=== PATIENT | female | born 1990 | race Caucasian/White ===

== ENCOUNTER 2016-08-31 13:00 | Emergency (ER) | payer OTHER ==
[2016-08-31] MEDS ORDERED: Ketorolac INJ* 30 MG/ML 1 ML VIAL IV ONE (13:23)
[2016-08-31] MEDS ORDERED: Metoclopramide IV* 5 MG/ML 2 ML VIAL IV ONE (13:23)
[2016-08-31] MEDS ORDERED: diPHENhydraMINE IV* 50 MG/ML 1 ml VIAL (BENADRYL) IV ONE (13:23)
[2016-08-31] MEDS ORDERED: NS 0.9% 1000 ML* 1,000 ML IV ONE (13:23)
[2016-08-31 13:58] LABS: Hematocrit 42 % (35-47); Hemoglobin 13.6 g/dl (12.0-16.0); Mean Corpuscular HGB Conc 33 g/dl (31-36); Mean Corpuscular Hemoglobin 29 pg (27-31); Mean Corpuscular Volume 88 fL (80-97); Mean Platelet Volume 8 um3 (7.4-10.4); Red Blood Count 4.73 10^6/ul (4.0-5.4); Red Cell Distribution Width 14 % (10.5-15); White Blood Count 6.3 10^3/ul (3.5-10.8)
[2016-08-31 14:23] LABS: BUN/Creatinine Ratio 7.1 (8-20); C Reactive Protein 7.05 mg/L (< 5.00); Calcium 9.3 mg/dL (8.6-10.3); EGFR African American 88.2 (>60); EGFR Non-African American 68.6 (>60); Globulin 3.2 g/dL (2-4); Total Bilirubin 0.4 mg/dL (0.2-1.0); Total Protein 7.2 g/dL (6.4-8.9)
[2016-08-31 16:36] VITALS: BP 116/68
--- NOTE | 2016-08-31 19:37 | ED ---
Shavon Moore Alok, scribed for Bandar Waller MD on 08/31/16 at 1324 . Headache - HPI Summary HPI Summary: 26F presents to the ED with a RUSSELL for the past three days accompanied by dizziness and nausea. The patient also notes vomiting as of today, prompting her visit to the ED. The patient describes her RUSSELL as migraine like, located at the left temporal and occipital areas and feels similar to migraines she has had in the past. The pt states that nothing makes her RUSSELL better/worse. Pt states she tried taking her medication for chronic migraines with no alleviation. Pt also notes photophobia, loss of appetite, and difficulty staying hydrated due to nausea. Pt also notes right sided dental pain. Pt denies fever, dysuria, or diarrhea. Her last BM was yesterday. PMHx includes h/ o migraine RUSSELL and bicuspid aortic valve. Pt states NKDA. - History Of Current Complaint Chief Complaint: EDNauseaVomitDiarrh Stated Complaint: MIGRAINE,DIZZY,WEAKNESS Time Seen by Provider: 08/31/16 13:08 Hx Obtained From: Patient Onset/Duration: Started days ago - RUSSELL, nausea, dizziness, Still Present, Worse Since - Today (vomiting) Currently Pain Is: Current Pain Scale(0-10)= - 8 Timing: Constant Character: Migraine Location of Headache: Temporal, Occipital Aggravating Factor: Bright Lights Allevating Factors: Nothing Associated Signs And Symptoms: Dizziness, Nausea, Vomiting - Allergies/Home Medications Allergies/Adverse Reactions: Allergies Allergy/AdvReac Type Severity Reaction Status Date / Time Zolpidem [From Ambien] Allergy Unknown Verified 04/30/15 14:29 Reaction Details PMH/Surg Hx/FS Hx/Imm Hx Endocrine/Hematology History: 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 Denies: Hx Anticoagulant Therapy, Hx Blood Disorders Cardiovascular History: Reports: Other Cardiovascular Problems/Disorders - bicupsid aortic valve Musculoskeletal History: Reports: Hx Scoliosis Neurological History: Denies: Other Neuro Impairments/Disorders Psychiatric History: Reports: Hx Depression - bipolar d/o - impulsive - well controlled on meds at this time Infectious Disease History: Denies: Hx of Known/Suspected MRSA, Traveled Outside the [place] in Last 30 Days - Family History Known Family History: Positive: Unknown - adopted - Social History Occupation: Unemployed Lives: With Family Alcohol Use: Occasionally Hx Substance Use: No Substance Use Type: Reports: None Hx Tobacco Use: No Smoking Status (MU): Never Smoked Tobacco Review of Systems Negative: Fever Positive: Vomiting, Nausea. Negative: Diarrhea Negative: dysuria Neurological: Other - Dizziness Positive: Headache All Other Systems Reviewed And Are Negative: Yes Physical Exam Triage Information Reviewed: Yes Vital Signs On Initial Exam: Initial Vitals Temp Pulse Resp BP Pulse Ox 97.4 F 88 18 126/80 98 08/31/16 13:02 08/31/16 13:02 08/31/16 13:02 08/31/16 13:02 08/31/16 13:02 Vital Signs Reviewed: Yes Appearance: Positive: Well-Appearing, No Pain Distress Skin: Positive: Warm, Skin Color Reflects Adequate Perfusion, Dry Head/Face: Positive: Normal Head/Face Inspection Eyes: Positive: Normal ENT: Positive: Normal ENT inspection Neck: Positive: Supple, Nontender Respiratory/Lung Sounds: Positive: Clear to Auscultation, Breath Sounds Present Cardiovascular: Positive: RRR. Negative: Murmur Abdomen Description: Positive: Nontender, Soft Bowel Sounds: Positive: Present Musculoskeletal: Positive: Other - Mild left paracervical area tenderness Neurological: Positive: Normal, Other - No meningitis signs. Psychiatric: Positive: Normal, Affect/Mood Appropriate Diagnostics - Vital Signs Vital Signs Temp Pulse Resp BP Pulse Ox 08/31/16 13:02 97.4 F 88 18 126/80 98 - Laboratory Lab Results: Lab Results 08/31/16 08/31/16 Range/Units 13:40 13:40 WBC 6.3 (3.5-10.8) 10^3/ul RBC 4.73 (4.0-5.4) 10^6/ul Hgb 13.6 (12.0-16.0) g/dl Hct 42 (35-47) % MCV 88 (80-97) fL MCH 29 (27-31) pg MCHC 33 (31-36) g/dl RDW 14 (10.5-15) % Plt Count 315 (150-450) 10^3/ul MPV 8 (7.4-10.4) um3 Neut % (Auto) 70.9 (38-83) % Lymph % (Auto) 24.8 L (25-47) % [place] % (Auto) 3.3 (1-9) % Eos % (Auto) 0.2 (0-6) % Baso % (Auto) 0.8 (0-2) % Absolute Neuts (auto) 4.4 (1.5-7.7) 10^3/ul Absolute Lymphs (auto) 1.6 (1.0-4.8) 10^3/ul Absolute Monos (auto) 0.2 (0-0.8) 10^3/ul Absolute Eos (auto) 0 (0-0.6) 10^3/ul Absolute Basos (auto) 0.1 (0-0.2) 10^3/ul Absolute Nucleated RBC 0.01 10^3/ul Nucleated RBC % 0.1 Sodium 133 (133-145) mmol/L Potassium 4.0 (3.5-5.0) mmol/L Chloride 106 (101-111) mmol/L Carbon Dioxide 17 L (22-32) mmol/L Anion Gap 10 (2-11) mmol/L BUN 7 (6-24) mg/dL Creatinine 0.98 H (0.51-0.95) mg/dL Est GFR ( Amer) 88.2 (>60) Est GFR (Non-Af Amer) 68.6 (>60) BUN/Creatinine Ratio 7.1 L (8-20) Glucose 90 (70-100) mg/dL Calcium 9.3 (8.6-10.3) mg/dL Total Bilirubin 0.40 (0.2-1.0) mg/dL AST 34 (13-39) U/L ALT 44 (7-52) U/L Alkaline Phosphatase 55 (34-104) U/L C-Reactive Protein 7.05 H (< 5.00) mg/L Total Protein 7.2 (6.4-8.9) g/dL Albumin 4.0 (3.2-5.2) g/dL Globulin 3.2 (2-4) g/dL Albumin/Globulin Ratio 1.3 (1-3) Result Diagrams: 08/31/16 13:40 08/31/16 13:40 Lab Statement: Any lab studies that have been ordered have been reviewed, and results considered in the medical decision making process. Re-Evaluation - Re-Evaluation First Eval Re-Evaluation Time: 14:59 Change: Improved Comment: Discussed nml lab work Headache Course/Dx - Course Course Of Treatment: Ms. Fofana obtained significant relief of her RUSSELL and other symptoms with a 'migraine cocktail' of NS, toradol, benadryl and reglan. She will be D/C'd for F/U if problems continue. - Diagnoses Provider Diagnoses: Migraine headache Discharge - Discharge Plan Condition: Stable Disposition: HOME Patient Education Materials: Migraine Headache (ED) Referrals: Non Staff,Doctor [Primary Care Provider] - [facility] [place] [facility] [Outside] The documentation as recorded by the Shavon rothman Alok accurately reflects the service I personally performed and the decisions made by me, Bandar Waller MD.
== END 2016-08-31 16:35 | disposition home or self-care (01) ==
LOC: ED 13:00
DX: G43.909 Migraine, unspecified, not intractable, without status migrainosus (principal); R11.2 Nausea with vomiting, unspecified; R42 Dizziness and giddiness
CPT/HCPCS: 36415; 80053; 85025; 86140; 96374; 96375; 99282; J1200; J1885

== ENCOUNTER → 2017-11-07 12:13 | Emergency (ER) | payer MEDICAID ==
[2017-11-07 21:17] LABS: Urine Appearance Cloudy; Urine Blood Negative (Negative); Urine Color Yellow; Urine Ketones Negative (Negative); Urine Protein Negative (Negative); Urine Red Blood Cell 1+(3-5/hpf) (Absent); Urine Specific Gravity 1.017 (1.010-1.030); Urine Urobilinogen Negative (Negative); Urine White Blood Cell 3+(>20/hpf) (Absent)
--- NOTE | 2017-11-08 07:19 | UC ---
- Progress Note Progress Note: NO IMAGING ORDERED Discharge - Sign-Out/Discharge Documenting (check all that apply): Post-Discharge Follow Up All imaging exams completed and their final reports reviewed: No Studies - Discharge Plan Referrals: No Primary Care Phys,NOPCP [Primary Care Provider] -
--- NOTE | 2017-11-10 16:26 | UC ---
- Progress Note Progress Note: d/c bactrim change to Keflex 500 mg po bid for 10 days Discharge - Sign-Out/Discharge Documenting (check all that apply): Post-Discharge Follow Up All imaging exams completed and their final reports reviewed: No Studies - Discharge Plan Referrals: No Primary Care Phys,NOPCP [Primary Care Provider] -
--- NOTE | 2017-11-11 14:59 | UC ---
Complaint Female HPI - HPI Summary HPI Summary: 27-year-old female comes to clinic with dysuria for several days. She has increased frequency and feels urinary retention. She denies any abdominal pain fevers or chills. She took Azo 2 days ago and has been drinking cranberry juice but symptoms are worsening. Is on control pills. She denies any concerns of STI. - History Of Current Complaint Time Seen by Provider: 11/11/17 14:53 - Allergies/Home Medications Allergies/Adverse Reactions: Allergies Allergy/AdvReac Type Severity Reaction Status Date / Time Zolpidem [From Ambien] Allergy Unknown Verified 04/30/15 14:29 Reaction Details PMH/Surg Hx/FS Hx/Imm Hx Psychological History: Anxiety, Depression Other History Of: Negative For: Anticoagulant Therapy - Family History Known Family History: Positive: Unknown - adopted - Social History Alcohol Use: Occasionally Substance Use Type: None Smoking Status (MU): Never Smoked Tobacco Review of Systems Constitutional: Negative Skin: Negative Eyes: Negative ENT: Negative Respiratory: Negative Cardiovascular: Negative Gastrointestinal: Negative Genitourinary: Dysuria, Frequency, Urgency Motor: Negative Neurovascular: Negative Musculoskeletal: Negative Neurological: Negative Psychological: Negative Is Patient Immunocompromised?: No All Other Systems Reviewed And Are Negative: Yes Physical Exam Triage Information Reviewed: Yes Appearance: Well-Appearing, No Pain Distress, Well-Nourished Vital Signs Reviewed: Yes Eye Exam: Normal ENT Exam: Normal ENT: Positive: Normal ENT inspection Neck exam: Normal Neck: Positive: Supple Respiratory: Positive: Lungs clear, Normal breath sounds, No respiratory distress Cardiovascular: Positive: RRR Abdomen Description: Positive: Nontender. Negative: CVA Tenderness (R), CVA Tenderness (L) Bowel Sounds: Positive: Present Musculoskeletal Exam: Normal Musculoskeletal: Positive: Strength Intact, ROM Intact Neurological Exam: Normal Psychological Exam: Normal Skin Exam: Normal Complaint Female Dx - Course Course Of Treatment: Prescribed Bactrim DS by mouth twice a day 7 days. Urine culture is pending. - Differential Dx/Diagnosis Provider Diagnoses: uti Discharge - Sign-Out/Discharge Documenting (check all that apply): Patient Departure All imaging exams completed and their final reports reviewed: No Studies - Discharge Plan Condition: Stable Disposition: HOME Prescriptions: Cephalexin CAP* [Keflex CAP*] 500 mg PO BID #14 cap Patient Education Materials: Urinary Tract Infection in Women (ED) Referrals: No Primary Care Phys,NOPCP [Primary Care Provider] - - Billing Disposition and Condition Condition: STABLE Disposition: Home - Attestation Statements Document Initiated by Miguel Ángeliboma: No
== END | disposition home or self-care (01) ==
LOC: UCEAST 12:13
DX: N39.0 Urinary tract infection, site not specified (principal); Z88.8 Allergy status to other drugs, medicaments and biological substances
CPT/HCPCS: 81003; 81015; 87077; 87086; 87186